=== PATIENT | male | born 1940 | race Native Hawaiian/Other Pacific Islander ===

== ENCOUNTER 2016-03-18 06:47 | Outpatient (CLI) | payer OTHER ==
[~2016-03-18 06:47] MED LIST: ALPR0.5T24 PO; AMBIEN5 MG PO; AMITIZA24 MCG PO; CHLO25TA12 PO; CLOP75TA2 PO; FURO20TA67 PO; GLIP10TA55 PO; GLIP10TA66 PO; JANUVIA100 MG PO; NEXIUM40 M1 PO; NORT25CA PO; QUETIAPINE300 MG PO; SEROQUEL300 MG PO; SIMV20TA2 PO; TAMS0.4C PO; TARKA PO; TRADJENTA5 M1 PO; TRAZ50TA36 PO; TRICOR145 MG PO
== END 2016-03-18 22:07 | disposition home or self-care (01) ==
LOC: INF 06:47
DX: J15.29 Pneumonia due to other staphylococcus (principal)
CPT/HCPCS: 36415; 80170; 96365

== ENCOUNTER 2016-03-19 19:32 | Outpatient (CLI) | payer OTHER | END 2016-03-19 21:00 | LOC: INF 19:32 | DX: J15.29 Pneumonia due to other staphylococcus (principal) | CPT/HCPCS: 96365; J1580 ==

== ENCOUNTER 2016-03-27 10:06 | Emergency (ER) | payer OTHER ==
[~2016-03-27] VITALS: Ht 175.3 cm; Wt 77.1 kg
[2016-03-27 12:25] VITALS: BP 196/97; TEMP 98.3
== END 2016-03-27 12:25 | disposition home or self-care (01) ==
LOC: ED 10:06
DX: T78.3XXA Angioneurotic edema, initial encounter (principal)
CPT/HCPCS: 96374; 96375; 99284; J1100; S0028

== ENCOUNTER 2016-08-06 11:46 | Outpatient (CLI) | payer OTHER | END 2016-08-15 11:51 | disposition short-term general hospital (02) | LOC: AMB 11:46 | DX: I95.89 Other hypotension (principal); R53.1 Weakness | CPT/HCPCS: A0425; A0427 ==

== ENCOUNTER 2016-08-06 11:51 | Emergency (ER) | payer OTHER ==
[~2016-08-06] VITALS: Ht 182.9 cm; Wt 86.2 kg
[2016-08-06 11:55] VITALS: TEMP 98.3
[2016-08-06 13:17] LABS: POTASSIUM 3.1 mmol/L (3.6-5.2); SODIUM 132 mmol/L (136-145)
[2016-08-06 13:18] LABS: PLATELET COUNT 192 K/uL (142-355)
[2016-08-06 15:42] VITALS: BP 137/71
== END 2016-08-06 15:42 | disposition left against medical advice (07) ==
LOC: ED 11:51
PROVIDERS: Specialist
DX: I95.89 Other hypotension (principal); R42 Dizziness and giddiness; I45.19 Other right bundle-branch block; I50.9 Heart failure, unspecified
CPT/HCPCS: 80053; 82550; 82553; 83735; 83880; 84100; 84484; 85027; 93005; 96360; 99284

== ENCOUNTER 2017-06-27 11:09 | Outpatient (CLI) | payer OTHER | END 2017-06-27 11:12 | disposition short-term general hospital (02) | LOC: AMB 11:09 | DX: M54.5 Low back pain (principal); R51 Headache; S01.81XA Laceration without foreign body of other part of head, initial encounter; W17.89XA Other fall from one level to another, initial encounter; Y92.481 Parking lot as the place of occurrence of the external cause | CPT/HCPCS: A0425; A0429 ==

== ENCOUNTER 2017-06-27 11:12 | Emergency (ER) | payer OTHER ==
[~2017-06-27] VITALS: Ht 172.7 cm; Wt 81.6 kg
[2017-06-27 14:48] VITALS: BP 140/71; TEMP 97.2
== END 2017-06-27 14:50 | disposition home or self-care (01) ==
LOC: ED 11:12
DX: M50.30 Other cervical disc degeneration, unspecified cervical region (principal); M47.892 Other spondylosis, cervical region; A31.0 Pulmonary mycobacterial infection; R51 Headache; W01.0XXA Fall on same level from slipping, tripping and stumbling without subsequent striking against object, initial encounter; Y92.481 Parking lot as the place of occurrence of the external cause
CPT/HCPCS: 90715; 96372; 99283; J1885

== ENCOUNTER 2017-09-23 21:17 | Emergency (ER) | payer OTHER ==
[~2017-09-23] VITALS: Ht 172.7 cm; Wt 88.5 kg
[2017-09-23 21:57] LABS: PLATELET COUNT 248 K/uL (142-355)
[2017-09-23 22:06] LABS: POTASSIUM 3.6 mmol/L (3.6-5.2)
[2017-09-23 23:14] VITALS: BP 175/92; TEMP 98
== END 2017-09-23 23:15 | disposition home or self-care (01) ==
LOC: ED 21:17
DX: R13.19 Other dysphagia (principal)
CPT/HCPCS: 36415; 80053; 85027; 96374; 99284; J1610; J2930

== ENCOUNTER 2018-10-19 17:46 | Outpatient (CLI) | payer OTHER ==
[~2018-10-19 17:46] MED LIST changes: -CHLO25TA12 PO; +[UNRECOGNIZED DRUG - OTHER] PO
[2018-10-20] MEDS ORDERED: MIRALAX3350 N1 PO (03:37)
[2018-10-20] MEDS ORDERED: ALPR0.5T24 PO (04:01)
[2018-10-20] MEDS ORDERED: PAMELOR25 MG PO ×2 (04:06→04:07)
[2018-10-20] MEDS ORDERED: B121000 MCG PO (04:08)
[2018-10-20] MEDS ORDERED: CLARITIN10 M1 PO (04:09)
[2018-10-20] MEDS ORDERED: FURO20TA67 PO (04:10)
[2018-10-20] MEDS ORDERED: DEXL60CA4 PO (04:11)
[2018-10-20] MEDS ORDERED: MONT10TA PO (04:14)
[2018-10-20] MEDS ORDERED: MAVIK4 MG PO (04:20)
[2018-10-20] MEDS ORDERED: GABA300C2 PO (04:22)
[2018-10-20] MEDS ORDERED: VERA240T17 PO (04:23)
[2018-10-20] MEDS ORDERED: BASAGLAR K100 UNIT/M SC (11:02)
== END 2018-10-19 17:54 | disposition short-term general hospital (02) ==
LOC: AMB 17:46
DX: R41.82 Altered mental status, unspecified (principal); R50.9 Fever, unspecified
CPT/HCPCS: A0425; A0427

== ENCOUNTER 2018-10-19 18:01 | Inpatient (IN) | payer OTHER ==
[~2018-10-19] VITALS: Ht 172.7 cm; Wt 77.3 kg
[2018-10-19 18:01] VITALS: BP 155/73; TEMP 105.1
[2018-10-19 18:52] LABS: PLATELET COUNT 212 K/uL (142-355)
[2018-10-19 19:05] LABS: POTASSIUM 3.1 mmol/L (3.6-5.2)
[2018-10-19 19:16] LABS: PARTIAL THROMBOPLASTIN TIME 25.7 SECONDS (24.5-33.6)
[2018-10-19 22:00] VITALS: BP 165/76
[2018-10-19 22:40] VITALS: BP 139/74; TEMP 98.6
[2018-10-19 23:00] VITALS: BP 128/59
[2018-10-19 23:30] VITALS: BP 130/67
[2018-10-20] VITALS (28 sets, daily range): BP systolic 114–175; BP diastolic 43–85; TEMP 98.6–102.8; Ht 172.7 cm; Wt 77.3 kg
--- NOTE | 2018-10-20 00:16 | NUR ---
RESTING WITH EYES CLOSED, NO DISTRESS OR PAIN NOTED, RESP RATE NONLABORED, ON ROOM AIR, VITALS BEING MONITORED, 20G IV INTACT TO R AC WITH NS INFUSING, URINAL WITHIN PT'S REACH, WILL MONITOR CLOSELY, RAILS UP X3, BED IN LOW POSITION.
--- NOTE | 2018-10-20 00:51 | NUR ---
C/O CONSTANT PAIN "BONES ACHING" AND THAT THE PAIN IS A "10,10". MOANING AT TIMES. TEMP IS 99.5. GAVE TYLENOL 650MG PO PRN FOR PAIN, WILL MONITOR CLOSELY, RAILS UP, BED IN LOW POSITION, ENCOURAGED TO CALL NEEDED.
--- NOTE | 2018-10-20 01:35 | NUR ---
PT STATES THAT HIS PAIN HAS NOW DECREASED TO A "6" ON SCALE SINCE PRN MEDICATION GIVEN, TEMP IS NOW 98.9 ORAL, WILL MONITOR CLOSELY, RAILS UP, BED IN LOW POSITION, ENCOURAGED TO CALL NEEDED.
[2018-10-20] MEDS ORDERED: MIRALAX3350 N1 PO (03:37)
[2018-10-20] MEDS ORDERED: ALPR0.5T24 PO (04:01)
[2018-10-20] MEDS ORDERED: PAMELOR25 MG PO ×2 (04:06→04:07)
[2018-10-20] MEDS ORDERED: B121000 MCG PO (04:08)
[2018-10-20] MEDS ORDERED: CLARITIN10 M1 PO (04:09)
[2018-10-20] MEDS ORDERED: FURO20TA67 PO (04:10)
[2018-10-20] MEDS ORDERED: DEXL60CA4 PO (04:11)
[2018-10-20] MEDS ORDERED: MONT10TA PO (04:14)
[2018-10-20] MEDS ORDERED: MAVIK4 MG PO (04:20)
[2018-10-20] MEDS ORDERED: GABA300C2 PO (04:22)
--- NOTE | 2018-10-20 04:22 | NUR ---
RESTING WITH EYES CLOSED IN POSITION OF COMFORT, NO S/S OF PAIN OR DISTRESS NOTED, IV INTACT, RESP RATE NONLABORED, VITALS BEING MONITORED, RAILS UP X3, BED IN LOW POSITION.
[2018-10-20] MEDS ORDERED: VERA240T17 PO (04:23)
--- NOTE | 2018-10-20 06:25 | NUR ---
PT AWAKE AND ORIENTED, STATUS HAS IMPROVED, RESP RATE NONLABORED, ON ROOM AIR,IV INTACT TO R AC WITH FLUID ONGOING, VITALS BEING MONITORED, SHIRT FINISHER IN USE, DENIES ANY PROBLEMS OR PAIN. ASSISTED PT TO USE URINAL, URINATED 200ML. ASKING PREHEMMER ABOUT HIS HOME MEDS THAT HE GETS IN THE MORNING TIME, INFORMED PT THAT THE HOSPITALIST WOULD LOOK OVER THEM THIS MORNING AND RESTART THEM, ACKNOWLEDGES UNDERSTANDING. RAILS UP X3, BED IN LOW POSITION, ENCOURAGED TO CALL NEEDED, WILL MONITOR CLOSELY.
[2018-10-20 06:33] LABS: PLATELET COUNT 215 K/uL (142-355)
[2018-10-20 06:47] LABS: POTASSIUM 3.2 mmol/L (3.6-5.2)
--- NOTE | 2018-10-20 07:43 | NUR ---
PATIENT AWAKE THIS AM SITTING UP IN BED NO COMPLAINTS VOICED. DR NAKIA SEVERINO VISITED CHECKED PATIENT.
--- NOTE | 2018-10-20 09:15 | NUR ---
ATE ALL BREAKFAST BRANDY WELL RECIEVED AM MEDS ORDERED. C/O CHILLS CHECKED TEMP 101.9 ORAL RECIEVED TYLENOL 650 MG PO. ASSISTED TO BEDSIDE COMMODE. VOIDED. AND HAD BM LOOSE LIQUID STOOL. ASSISTED BACK TO BED.
--- NOTE | 2018-10-20 10:26 | NUR ---
RESTING IN BED CHILLS STOPPED CHECKED TEMP 102.8 ORAL. WILL REPORT TO MD. DAUGHTER HERE.
--- NOTE | 2018-10-20 10:40 | NUR ---
REPORT ELEVATED TEMPS TO DR SEVERINO RECIEVED NEW ORDERS. DAUGHTER AT BEDSIDE. PATIENT APPEARS TO BE DOING A LITTLE BETTER RECHECKED TEMP 102.8 ORAL.
[2018-10-20] MEDS ORDERED: BASAGLAR K100 UNIT/M SC (11:02)
--- NOTE | 2018-10-20 11:41 | NUR ---
BLOOD SUGAR 252 RECIEVED 6 UNITS REGULAR INSULIN. ASSISTED PT TO BEDSIDE COMMODE VOIDED 150 ML URINE. ASSISTED A BACK TO BED STARTED 500 ML BOLUS ORDERED. DAUGHTER AT BEDSIDE. DR NAKIA SEVERINO VISITED AGAIN CHECK PT STATUS.
--- NOTE | 2018-10-20 13:00 | NUR ---
UP IN BED ATE ABOUT 75% LUNCH BRANDY WELL. IV FLUIDS CONTINUE WITHOUT DIFFICULTY. RECIEVED IV FLUID ORDERED. PT FAMILY MEMBERS HERE.
--- NOTE | 2018-10-20 14:00 | NUR ---
NOTED PT SHAKING C/O CHILLS CHECKED TEMP 101.6 PT BECOMING ANXOIUS RECIEVED TYLENOL 650 MG PO COOL WASH CLOTH TO FACE. IV FLUIDS INFUSING WITHOUT DIFFICULTY.
--- NOTE | 2018-10-20 14:45 | NUR ---
PT CONTINUES WITH SHAKES RECIEVED NEW ANTIBOTICS CHANGED BY DR SEVERINO. BOLUS 500 ML NS. C/O SOME NAUSEA. INCREASED ANXIETY NOTED. APPLIED COOL WASHCLOTH TO FOREHAEAD. TEMP 100.0 ORAL. 1450 RECIEVED ZOFRAN [address] SEVERINO RECIEVED NEW ORDERS.
--- NOTE | 2018-10-20 15:05 | NUR ---
RECIEVED XANAX 1 MG PO FOR ANXIETY.
--- NOTE | 2018-10-20 15:41 | NUR ---
STATES "FEELING BETTER" NO SHAKING NO CHILLS TEMP 99.1 ORAL CONTINUE 500 ML BOLUS. WILL CONTINUE TO MONITOR REPORT TO DR SEVERINO.
--- NOTE | 2018-10-20 16:34 | NUR ---
PATIENT RESTING IN BED HOB UP. ASSISTED TO BEDSIDE COMMODE. VOIDED 150 ML DARK MARI CLEAR URINE. PT INC BEFORE GETTING TO BEDSIDE COMMODE. ASSISTED WITHY DIAPER CHANGE MORELIA CARE. NOTED SOME COMFUSION PATIENT STATED THAT HE WAS READY TO GO HOME. TALKED WITH PATIENT TOLD HIM THAT HE WAS IN THE HOSPITAL GETTING IV MEDS PATIENT VERY UNSTEADY. TALKING MORE ABOUT GOING HOME. SUSPECT SUNDOWNERS. DR SEVERINO HERE OBSERVED PATIENT. PATIENT'S DAUGHTER HERE AT BEDSIDE ATTEMPT TO HELP KEEP HER DAD CALM.
--- NOTE | 2018-10-20 17:27 | NUR ---
SITTING UP IN BED EATING DINNER BLOOD SUGAR WAS 183 RECIEVED 2 UNITS REGULAR INSULIN SQ. TEMP 102.5 ORAL PT C/O "FEELING HOT" UP IN BED COOL WASHCLOTH TO FACE. SERVED DINNER TRAY. PATIENT SITTING UP FEEDING SELF. RECIEVED MOTRIN 600 MG PO.
--- NOTE | 2018-10-20 19:00 | NUR ---
MOTRIN EFFECTIVE TEMP 99.5 PATIENT RESTING MUCH BETTER.
--- NOTE | 2018-10-20 20:34 | NUR ---
PT CONTINUES TO REST. TEMP CHECKED ORALLY 99.1.DAUGHTER AT BEDSIDE.
--- NOTE | 2018-10-20 22:30 | NUR ---
PT WAS ASSISTED UP OUT OF BED TO BSC. PT WAS GIVEN PM MEDICATIONS. PT UNSTEADY. PT WAS GIVEN PO MEDICATIONS AND XANAX WAS GIVEN.
[2018-10-21] VITALS (24 sets, daily range): BP systolic 112–144; BP diastolic 48–69; TEMP 98.1–99.9
--- NOTE | 2018-10-21 03:38 | NUR ---
PT'S TEMP 98.7 AXILLARY. PT IS RESTING WITH EYES CLOSED. CM SR WITH ST DEPRESSION. RESPIRATIONS ARE 24-28 AND SHALLOW. DAUGHTER AT BEDSIDE.
--- NOTE | 2018-10-21 08:01 | NUR ---
PATIENT RESTING QUIETLY HOB UP DR SEVERINO VISITED AWAKEN PATIENT AM ASSESSEMENT DONE. NO NEW ORDERS AT PRESENT.
--- NOTE | 2018-10-21 09:00 | NUR ---
RECIEVED AM MED WITH BREAKFAST TO WELL. PT SLEEPING AT LONG INTERVALS. NO COMPLAINTS OF PAIN NO SHORTNESS OF BREATH APPEARS TO BE DOING BETTER RECIEVED LABS NOTE ELEVATED BUN AND CREAT. REPORT TO DR SEVERINO. RECIEVED ORDERS. FAMILY MEMBERS AT BEDSIDE.
[2018-10-21 09:49] LABS: POTASSIUM 3.5 mmol/L (3.6-5.2)
[2018-10-21 11:11] LABS: PLATELET COUNT 152 K/uL (142-355)
--- NOTE | 2018-10-21 11:30 | NUR ---
DR CHACON HERE TO SEE PATIENT CHECKING PT REVIEWED CHART. MET WITH FAMILY MEMBERS AND DR SEVERINO. PATIENT CONTINUES RESTING CHECKED PT INC LARGE AMOUT URINE. ASSISTED TO BEDSIDE COMMODE. VOIDED SMALL AMOUNT MORELIA CARE DONE. BED PADS CHANGED. BACK TO BED.
--- NOTE | 2018-10-21 12:30 | NUR ---
CHECKED PATIENT NOTED HYPOSPADIA HAD TO USE SMALLER CATH USED 12 TRISTANIAN. EXPLAINED PROCEDURE TO PATIENT, OK WITH PLACEMENT. PT BRANDY WELL RETURN CLEAR DARK MARI URINE. DR CHACON AT [facility] OBSERVED. NO BLEEDING NOTED. PATIENT ASSISTED BACK UP IN BED HOB UP. STARTED IV BOLUS ORDERED SLOW.
--- NOTE | 2018-10-21 13:15 | NUR ---
PATIENT RESTING QUIETLY DAUGHTER AT BEDSIDE VISITING DR ELLIS VISITED CHECKED PT RECIEVED NEW ORDERS. INFORMED DR SEVERINO. NO NEW ORDERS AT PRESENT PT CONTINUE RESTING QUIETLY NO COMPLAINTS OF PAIN. GOOD OUTPUT NOTED.
--- NOTE | 2018-10-21 14:01 | NUR ---
X RAY DEPT DWAYNE HERE RENAL ULTRASOUND COMPLETE.
--- NOTE | 2018-10-21 15:13 | NUR ---
DARRYL HERE EXPLAINED PROCEDURE ECHO DONE PT C/O BEING COLD SHAKES ADDED EXTRA BLANKET TEMP 98.1 ORAL. NO BLANKET IF PT HAS FEVER. DAUGHTER AT BEDSIDE
--- NOTE | 2018-10-21 16:55 | NUR ---
PATIENT CONTINUE TO C/O CHILLS. CHECKING TEMP REGULAR 98.4 ORAL NO FEVER TODAY. PROVIDED SMALL HYDRO BLANKET FOR WARMTH.
--- NOTE | 2018-10-21 17:14 | NUR ---
PATIENT STATES "FEELING MUCH BETTER "WARM" CHILLS STOPPED.
--- NOTE | 2018-10-21 19:33 | NUR ---
CALLED TO DR CHACON REPORT INTAKE AND OUTPUT, X RAY REPORTS RECIEVED ORDERS TO HOLD SEROQUEL. WILL CALL BACK REPORT IN AM LABS OUTPUT.
--- NOTE | 2018-10-21 21:23 | NUR ---
PT'S GRANDDAUGHTER HERE TO VISIT. PM MEDS GIVEN.
--- NOTE | 2018-10-21 23:42 | NUR ---
PT'S RESP UP TO 24-28 PER MINUTE. RESP AT BEDSIDE TO ADMINISTER [facility]N DUONEB TREATMENT.
[2018-10-22] VITALS (15 sets, daily range): BP systolic 132–166; BP diastolic 62–75; TEMP 98–100.3
--- NOTE | 2018-10-22 00:42 | NUR ---
PT IS CONFUSED. DAUGHTER AT BEDSIDE.NS INFUSING AT 100 ML PER HOUR. 12 GREEK [place] INTACT AND EMPTIED 1500 ML OF YELLOW URINE. TRAZADONE GIVEN TO PT FOR REST. REPOSITIONED IN BED. PT WAS GIVEN WATER TO DRINK. REORIENTED PT OS BEING IN THE HOSPITAL. PT IS IN WITH SEPSIS.
--- NOTE | 2018-10-22 04:17 | NUR ---
COMPLAINTS OF HEADACHE. MEDICATED WITH [id number] MG PO X 2.
[2018-10-22 05:13] LABS: PLATELET COUNT 157 K/uL (142-355)
[2018-10-22 05:32] LABS: POTASSIUM 3.9 mmol/L (3.6-5.2)
--- NOTE | 2018-10-22 05:37 | NUR ---
PT WAS ASSISTED PT UNSTEADY ON FEET. PT TALKATIVE AND IN PLEASANT SPIRITS.
--- NOTE | 2018-10-22 10:38 | NUR ---
PT RESTING IN LF,FAMILY AT BS.NOSE SWAB OBTAINED & TO LAB. [place] TO BSD WITH MARI URINE WITH SEDIMENT IN [place]ERY BAG.
--- NOTE | 2018-10-22 14:08 | NUR ---
DR HURST BACK IN TO SEE PT.TALKING WITH FAMILY ABOUT PT'S MEDS.
--- NOTE | 2018-10-22 16:15 | NUR ---
DR MARVIN HURST IN TO SEE PT AT FAMILY REQUEST. PT & FAMILY TEARFUL.PT'S 4 WEEKS AGAIN DURING 1ST DIALYSIS TX. FAMILY VERY WORRIED ABOUT PT. REQUEST TRANSFER.
--- NOTE | 2018-10-22 17:28 | NUR ---
CLARISSE MUÑOZ/ [facility] CALLED WITH RM [phone]. INFO FAXED TO [facility].
--- NOTE | 2018-10-22 18:13 | NUR ---
REPORT CALLED TO [facility].ATTEMPTED TO NOTIFY EMS.
--- NOTE | 2018-10-22 18:37 | NUR ---
EMS NOTIFIED OF NEED FOR TRANSFER.
--- NOTE | 2018-10-22 19:10 | NUR ---
PT D/C STABLE VIA STRETCHER TO AMBULANCE.
== END 2018-10-22 19:20 | disposition short-term general hospital (02) | DRG 871 ==
LOC: ED 18:01 → ICU 20:30 → ED 20:30 → ICU 10-22 19:20
PROVIDERS: Hospitalist; ADMIT Family Medicine
DX: A41.89 Other specified sepsis (principal); I50.33 Acute on chronic diastolic (congestive) heart failure; N39.0 Urinary tract infection, site not specified; N17.8 Other acute kidney failure; B95.2 Enterococcus as the cause of diseases classified elsewhere; F41.8 Other specified anxiety disorders; F03.90 Unspecified dementia, unspecified severity, without behavioral disturbance, psychotic disturbance, mood disturbance, and anxiety; I10 Essential (primary) hypertension; E11.9 Type 2 diabetes mellitus without complications; K21.9 Gastro-esophageal reflux disease without esophagitis; E87.6 Hypokalemia; E86.0 Dehydration; E78.00 Pure hypercholesterolemia, unspecified; I25.10 Atherosclerotic heart disease of native coronary artery without angina pectoris; E78.49 Other hyperlipidemia
CPT/HCPCS: 36415; 36600; 80053; 80307; 80320; 81000; 82550; 82805; 83605; 83880; 84484; 85027; 85610; 85730; 87040; 87070; 87077; 87086; 87088; 87185; 87186; 87899; 93005; 93306; 94664; 96360; 96365; 96366; 96375; 99285; J1580; J1650; J1815; J1940; J2405; J3370; J3490

== ENCOUNTER 2018-10-22 19:25 | Outpatient (CLI) | payer OTHER ==
[~2018-10-22 19:25] MED LIST changes: +B121000 MCG PO; +BASAGLAR K100 UNIT/M SC; +CLARITIN10 M1 PO; +DEXL60CA4 PO; +GABA300C2 PO; +MAVIK4 MG PO; +MIRALAX3350 N1 PO; +MONT10TA PO; +PAMELOR25 MG PO; +VERA240T17 PO
== END 2018-10-22 20:42 | disposition short-term general hospital (02) ==
LOC: AMB 19:25
DX: A41.89 Other specified sepsis (principal); N39.0 Urinary tract infection, site not specified
CPT/HCPCS: A0425; A0429

== ENCOUNTER 2018-11-25 22:41 | Emergency (ER) | payer OTHER ==
[~2018-11-25] VITALS: Ht 172.7 cm; Wt 72.6 kg
[2018-11-26 01:05] VITALS: BP 145/84; TEMP 97.9
== END 2018-11-26 01:05 | disposition home or self-care (01) ==
LOC: ED 22:41
PROC: 0T9B70Z Drainage of Bladder with Drainage Device, Via Natural or Artificial Opening (ICD-10-PCS; principal; 2018-11-25)
DX: R33.8 Other retention of urine (principal); N40.1 Benign prostatic hyperplasia with lower urinary tract symptoms
CPT/HCPCS: 51702; 81000; 99283

== ENCOUNTER 2018-11-28 21:44 | Emergency (ER) | payer OTHER ==
[~2018-11-28] VITALS: Ht 172.7 cm; Wt 72.6 kg
[2018-11-28 21:57] VITALS: BP 184/78; TEMP 99.4
[2018-11-28 22:45] LABS: PLATELET COUNT 232 K/uL (142-355)
[2018-11-28 22:54] LABS: POTASSIUM 3.1 mmol/L (3.6-5.2)
== END 2018-11-28 23:56 | disposition home or self-care (01) ==
LOC: ED 21:44
PROVIDERS: Family Medicine
DX: K59.09 Other constipation (principal); E87.6 Hypokalemia
CPT/HCPCS: 36415; 80053; 85027; 99283

== ENCOUNTER 2021-10-20 10:17 | Inpatient (IN) | payer OTHER | END 2021-11-16 09:17 | disposition still patient (30) | LOC: PAVC 10:17 | PROVIDERS: ADMIT Internal Medicine Endocrinology, Diabetes & Metabolism; ATTEND Internal Medicine Endocrinology, Diabetes & Metabolism | DX: S72.115D Nondisplaced fracture of greater trochanter of left femur, subsequent encounter for closed fracture with routine healing (principal); S76.912D Strain of unspecified muscles, fascia and tendons at thigh level, left thigh, subsequent encounter; M19.012 Primary osteoarthritis, left shoulder; M62.81 Muscle weakness (generalized); R26.2 Difficulty in walking, not elsewhere classified; R26.81 Unsteadiness on feet; Z74.1 Need for assistance with personal care | CPT/HCPCS: 82272; 87081; 87328; 87329 ==

== ENCOUNTER 2022-04-01 05:06 | Emergency (ER) | payer OTHER ==
[~2022-04-01] VITALS: Ht 172.7 cm; Wt 72.6 kg
[~2022-04-01 05:06] MED LIST changes: +904272561 PO
[2022-04-01 05:10] VITALS: TEMP 98.4
[2022-04-01 06:25] VITALS: BP 121/57
== END 2022-04-01 06:25 | disposition home or self-care (01) ==
LOC: ED 05:06
PROC: 0T2BX0Z Change Drainage Device in Bladder, External Approach (ICD-10-PCS; principal; 2022-04-01)
DX: T83.098A Other mechanical complication of other urinary catheter, initial encounter (principal); Y73.2 Prosthetic and other implants, materials and accessory gastroenterology and urology devices associated with adverse incidents; Y92.89 Other specified places as the place of occurrence of the external cause
CPT/HCPCS: 51702; 99282

== ENCOUNTER 2022-05-03 19:23 | Emergency (ER) | payer OTHER ==
[~2022-05-03] VITALS: Ht 172.7 cm; Wt 72.6 kg
[2022-05-03 19:30] VITALS: TEMP 98.2
[2022-05-03 20:00] VITALS: BP 168/72
== END 2022-05-03 20:00 | disposition home or self-care (01) ==
LOC: ED 19:23
PROC: 0T2BX0Z Change Drainage Device in Bladder, External Approach (ICD-10-PCS; principal; 2022-05-03)
DX: T83.031A Leakage of indwelling urethral catheter, initial encounter (principal); Y84.6 Urinary catheterization as the cause of abnormal reaction of the patient, or of later complication, without mention of misadventure at the time of the procedure; Y92.89 Other specified places as the place of occurrence of the external cause
CPT/HCPCS: 51702; 99282

== ENCOUNTER 2022-08-02 21:06 | Emergency (ER) | payer OTHER ==
[~2022-08-02] VITALS: Ht 172.7 cm; Wt 59.0 kg
[2022-08-02 21:06] VITALS: BP 186/79; TEMP 97.6
== END 2022-08-02 23:45 | disposition home or self-care (01) ==
LOC: ED 21:06
DX: T85.638A Leakage of other specified internal prosthetic devices, implants and grafts, initial encounter (principal); N32.89 Other specified disorders of bladder
CPT/HCPCS: 99283

== ENCOUNTER 2022-09-13 20:27 | Emergency (ER) | payer OTHER ==
[~2022-09-13] VITALS: Ht 172.7 cm; Wt 78.0 kg
[2022-09-13 22:05] LABS: PLATELET COUNT 223 K/uL (142-355)
[2022-09-13 22:17] LABS: POTASSIUM 4.6 mmol/L (3.6-5.2); SODIUM 131 mmol/L (136-145)
[2022-09-13 23:29] VITALS: BP 136/79; TEMP 98.1
== END 2022-09-13 23:29 | disposition home or self-care (01) ==
LOC: ED 20:27
PROVIDERS: Family Medicine
DX: F32.A Depression, unspecified (principal); F41.9 Anxiety disorder, unspecified
CPT/HCPCS: 80053; 80143; 80179; 80307; 80320; 81000; 85027; 87077; 87086; 87088; 87186; 87635; 93005; 99285; U0003

== ENCOUNTER → 2022-10-27 | Emergency (ER) | payer OTHER | LOC: ED 20:54 | DX: E87.5 Hyperkalemia (principal); I13.0 Hypertensive heart and chronic kidney disease with heart failure and stage 1 through stage 4 chronic kidney disease, or unspecified chronic kidney disease; I50.9 Heart failure, unspecified; N18.30 Chronic kidney disease, stage 3 unspecified; E11.22 Type 2 diabetes mellitus with diabetic chronic kidney disease | CPT/HCPCS: 99281 ==

== ENCOUNTER 2022-10-29 06:17 | Emergency (ER) | payer OTHER ==
[~2022-10-29] VITALS: Ht 172.7 cm; Wt 78.0 kg
[2022-10-29 06:17] VITALS: TEMP 98.6
[2022-10-29 06:40] LABS: PLATELET COUNT 210 K/uL (142-355)
[2022-10-29 06:55] LABS: POTASSIUM 6.6 mmol/L (3.6-5.2)
[2022-10-29 09:30] VITALS: BP 195/85
== END 2022-10-29 09:30 | disposition short-term general hospital (02) ==
LOC: ED 06:17
PROVIDERS: Family Medicine
DX: E87.5 Hyperkalemia (principal); N39.0 Urinary tract infection, site not specified; M54.9 Dorsalgia, unspecified; I10 Essential (primary) hypertension; E11.9 Type 2 diabetes mellitus without complications
CPT/HCPCS: 80053; 80307; 81000; 82150; 83690; 85027; 87040; 87077; 87086; 87088; 87186; 93005; 96361; 96365; 99284; J0612; J2185; J3490